=== PATIENT | female | born 1995 | race Native Hawaiian/Other Pacific Islander ===

== ENCOUNTER 2018-02-20 10:28 | Emergency (ER) | payer BC ==
[2018-02-20 11:10] VITALS: PULSE 87; RESP 18; TEMP 97.5; O2SAT 100
--- NOTE | 2018-02-20 12:05 | RAD ---
Right ankle three views History: Injury. Comparison: None available. Findings: Ankle mortise is maintained. Talar dome is intact. Fracture deformity noted at the base of the 5th metatarsal bone which on the foot x-ray sequences may demonstrate some contact with the articular surface. Correlation with bony CT may be helpful if clinically indicated. Impression: Fracture deformity noted at the base of the 5th metatarsal bone which on the foot x-ray sequences may demonstrate some contact with the articular surface. Correlation with bony CT may be helpful if clinically indicated.
--- NOTE | 2018-02-20 12:07 | RAD ---
Right foot three views History: Foot injury. Comparison: None available. Findings: Comminuted fracture deformity noted at the base of the 5th metatarsal bone with some questionable extension to the articular surface at the 5th tarsometatarsal joint space. Correlation with bony CT may be helpful. Mild hallux valgus deformity. Impression: Comminuted fracture deformity noted at the base of the 5th metatarsal bone with some questionable extension to the articular surface at the 5th tarsometatarsal joint space. Correlation with bony CT may be helpful. Mild hallux valgus deformity.
--- NOTE | 2018-02-20 13:46 | C.PDOC ---
History Of Present Illness 22 y/o female presents to the ED for evaluation of right foot pain which began yesterday. Patient states she was at a concert when she jumped off of the stage and injured her right foot. Patient has been ambulatory with pain. She denies head injury, LOC, extremity numbness/weakness or any other injuries at this time. Time Seen by Provider: 02/20/18 11:35 Chief Complaint (Nursing): Lower Extremity Problem/Injury History Per: Patient History/Exam Limitations: no limitations Additional History Per: Patient - Ankle/Foot Description Of Injury: Fell Past Medical History Reviewed: Historical Data, Nursing Documentation, Vital Signs Vital Signs: Last Vital Signs Temp 97.5 F L 02/20/18 10:59 Pulse 87 02/20/18 10:59 Resp 18 02/20/18 10:59 BP Pulse Ox 100 02/20/18 20:55 - Medical History PMH: No Chronic Diseases Surgical History: No Surg Hx Family History: States: Unknown Family Hx - Social History Hx Alcohol Use: Yes Hx Substance Use: No - Immunization History Hx Tetanus Toxoid Vaccination: No Hx Influenza Vaccination: No Hx Pneumococcal Vaccination: No Review Of Systems Musculoskeletal: Positive for: Foot Pain (right) Neurological: Negative for: Other (LOC, head injury ) Physical Exam - Physical Exam Appears: Non-toxic, No Acute Distress Skin: Normal Color, Warm, Dry, Other (abrasion or laceration to right foot) Head: Atraumatic, Normacephalic Eye(s): bilateral: Normal Inspection Oral Mucosa: Moist Neck: Normal ROM, Supple Chest: Symmetrical, No Deformity, No Tenderness Cardiovascular: Rhythm Regular, No Friction Rub, No Murmur Respiratory: Normal Breath Sounds Back: Normal Inspection, No CVA Tenderness Extremity: Normal ROM, Tenderness (to right lateral 5th metatarsal area), No Calf Tenderness, Capillary Refill (less than 2 seconds ), No Deformity, Swelling (moderate to right lateral 5th metatarsal area) Extremity: Bilateral: Normal Color And Temperature Pulses: Left Dorsalis Pedis: Normal, Right Dorsalis Pedis: Normal Neurological/Psych: Oriented x3, Normal Speech, Normal Cognition, Normal Motor, Normal Sensation Gait: Steady ED Course And Treatment O2 Sat by Pulse Oximetry: 100 (on RA) Pulse Ox Interpretation: Normal Medical Decision Making Medical Decision Making: Plan: * Right ankle XR * Right foot XR * Tylenol PO * reassess and disposition Progress: Right ankle XR and Right foot XR ordered and reviewed. Tylenol PO administered. Case discussed with podiatry resident Dr. Mackey, who evaluated the patient at bedside. Resident has discussed the case with his attending, Dr. Leila Irby, who states patient will be evaluated for outpatient surgery. Posterior splint applied by resident. Patient was instructed in crutch walking and crutches given by Physical therapist. Patient will be discharged with f/u instructions. Disposition - Disposition Referrals: [facility] [Outside] Leila Fletcher DPM [Staff Provider] - Disposition: HOME/ ROUTINE Disposition Time: 13:44 Condition: FAIR Additional Instructions: Follow up with [facility] without 1-2 days. Return if worsened. Prescriptions: Acetaminophen [Tylenol] 325 mg PO Q6 PRN #30 tab PRN Reason: Pain, Mild (1-3) Instructions: Foot Fracture (DC) Forms: [employer] (Hungarian), School Excuse - Clinical Impression Clinical Impression: Tafoya fracture - PA / DIECAST MACHINE OPERATOR / Resident Statement MD/DO has reviewed & agrees with the documentation as recorded. - Scribe Statement The provider has reviewed the documentation as recorded by the Scribe (Qian Rangel) All medical record entries made by the Scribe were at my direction and personally dictated by me. I have reviewed the chart and agree that the record accurately reflects my personal performance of the history, physical exam, medical decision making, and the department course for this patient. I have also personally directed, reviewed, and agree with the discharge instructions and disposition.
--- NOTE | 2018-02-21 10:21 | CP.PCM.CON ---
History of Present Illness - History of Present Illness History of Present Illness: Podiatry Consult Note- Dr. Webb 22 y/o female seen at bedside for ED for evaluation of right foot pain which began yesterday. Patient states she was at a concert when she jumped off of the stage and injured her right foot. Pt states she had difficulty bearing weight but ambulated and drove home assuming only a mild contusion occurred. Upon wking this morning pain and decreased ability to bear weight to right foot prompted her to seek medical attention. Pain is well controlled with OTC Tylenol. She denies any extremity numbness/weakness recent dizzyness, fever, chills, chest pain, SOB, nausea, & vomiting. PMH: Unremarkable PSH: None reported. ALL: Ibuprofen Soc Hx: Denies tobacco use, alcohol consumption, and illicit drug use. Review of Systems - Review of Systems All systems: reviewed and no additional remarkable complaints except Past Patient History - Past Social History Smoking Status: Never Smoked - PSYCHIATRIC Hx Substance Use: No - SURGICAL HISTORY Hx Surgeries: Yes Other/Comment: RIGHT NECK LYMPH NODE REMOVED Meds Home Medications: Home Medication List Medication Instructions Recorded Confirmed Type Acetaminophen [Tylenol] 325 mg PO Q6 PRN #30 tab 02/20/18 Rx Allergies/Adverse Reactions: Allergies Allergy/AdvReac Type Severity Reaction Status Date / Time ibuprofen [From Advil] Allergy Verified 02/20/18 11:00 Physical Exam - Constitutional Appears: Well, Non-toxic, No Acute Distress - Extremities Exam Additional comments: Right lower extremity focused. Pt wearign and ambulated in with regulcar shoe gear. ACC: RIght lateral foot presents with mild ecchymosis extending from lateral midfoot with extension to dorsal and lateral surface. No bulla or blistering noted. No open wounds or ulcerations noted, No portal of entry noted. Mild non- pitting edema noted to area of ecchymosis. tenderness to direct palpation to proximal-lateral border of 5th metatarsal. Tenderness to Manual inversion foot manipulation. No tenderness to palpation along distal course of peroneal tendons. Palpable loose mildly mobile shanta fragment noted to styloid process of 5th metatarsal. Neuro vascular status intact to right foot with pedal sensation intact, 2/4 DP and PT pulses and CRF to all digits <3 seconds within normal limits. - Neurological Exam Neurological exam: Alert, Oriented x3 - Psychiatric Exam Psychiatric exam: Normal Affect, Normal Mood Results - Vital Signs Recent Vital Signs: Last Vital Signs Temp 97.5 F L 02/20/18 10:59 Pulse 87 02/20/18 10:59 Resp 18 02/20/18 10:59 BP Pulse Ox 100 02/20/18 22:57 Assessment & Plan - Assessment and Plan (Free Text) Assessment: 22 year old female with closed, displaced, intra-articular Tafoya fracture. Plan: Pt seen and evaluated at bedside. Discussed with attending, Dr. Webb, who endorsed the following plan. Chart, and vitals reviewed. Left foot and ankle radiographs reviewed- noted displaced 5th metatarsal Metaphyseal fracture to proximal met base. Potential comminution noted. No other fracture patterns detected. Pt placed in well padded posterior splint. Pt to remain non-weightbearing to right lower leg with aid of axillary crutches. Discussed with pt traumatic injury and potential treatment outcomes. Indicated surgical ORIF is indicated to to displacement and intra-articular nature of fracture. Benefits and complications discussed at this time. Outpatient planing to begin once pt follows up in an outpatient setting. Pt to follow up with Dr. Leila Webb in [facility] Tuesday afternoon. - Date & Time Date: 02/20/18 Time: 14:00
== END 2018-02-20 14:16 | disposition home or self-care (01) ==
LOC: C.ER 10:28
DX: S92.351A Displaced fracture of fifth metatarsal bone, right foot, initial encounter for closed fracture (principal); Y93.39 Activity, other involving climbing, rappelling and jumping off; Y92.89 Other specified places as the place of occurrence of the external cause
CPT/HCPCS: 29515; 73610; 73630; 97116; 97161; 99284; G8978; G8979; G8980